=== PATIENT | female | born 1995 | race Caucasian/White ===

== ENCOUNTER 2018-07-06 19:54 | Emergency (ER) | payer OTHER, BC ==
[2018-07-06] MEDS ORDERED: Take Home: Acetaminophen/Codeine 300 MG/30 MG, 5 Tab Pack PO ONE (21:21)
--- NOTE | 2018-07-06 21:32 | EDM.PDOC ---
ED HPI GENERAL MEDICAL PROBLEM - General Chief Complaint: Upper Extremity Injury/Pain Time Seen by Provider: 07/06/18 20:09 Source of Information: Reports: Patient History Limitations: Reports: No Limitations - History of Present Illness INITIAL COMMENTS - FREE TEXT/NARRATIVE: States that she crushed her 5th digit of L hand with a hotplate at work. States that she has decreased ROM to the extremity and throbbing to the distal portion of the digit. Denies any injury elsewhere. Her tetanus is UTD. Onset: Today Onset Date: 07/06/18 Location: Reports: Upper Extremity, Left Quality: Reports: Throbbing Severity: Moderate Left Finger-Little Pain Score (Numeric/FACES): 9 - Related Data Allergies Allergy/AdvReac Type Severity Reaction Status Date / Time No Known Allergies Allergy Verified 07/06/18 20:07 Home Meds: Home Meds Desogestrel-Ethinyl Estradiol [Apri 28 Day Tablet] 1 each PO ASDIRECTED [History] Escitalopram [Lexapro] 20 mg PO DAILY 07/06/18 [History] Levothyroxine [Synthroid] 50 mcg PO ACBREAKFAST 07/06/18 [History] Propranolol [Inderal] 20 mg PO DAILY 07/06/18 [History] Past Medical History Cardiovascular History: Reports: Hypertension Endocrine/Metabolic History: Reports: Hypothyroidism Social & Family History - Tobacco Use Smoking Status *Q: Never Smoker Review of Systems - Review of Systems Review Of Systems: ROS reveals no pertinent complaints other than HPI. ED EXAM, GENERAL - Physical Exam Exam: See Below Exam Limited By: No Limitations General Appearance: Alert, WD/WN, No Apparent Distress Extremities: Limited Range of Motion, Redness, Other (swelling to distal portion of the 5th digit of the L hand) Neurological: Alert, Oriented, CN II-XII Intact, Normal Cognition, Normal Gait, Normal Reflexes, No Motor/Sensory Deficits Skin Exam: Warm, Dry, Intact, Normal Color, No Rash Course - Vital Signs Last Recorded V/S: Last Vital Signs Temp 36.9 C 07/06/18 20:09 Pulse 93 07/06/18 20:09 Resp 16 07/06/18 20:09 BP 150/82 H 07/06/18 20:09 Pulse Ox 99 07/06/18 20:09 - Orders/Labs/Meds Orders: Active Orders 24 hr Category Date Time Status Fingers Fifth Digit Lt F4 [CR] Stat Exams 07/06/18 20:21 Taken Meds: Medications Discontinued Medications Generic Name Dose Route Start Last Admin Trade Name Nahed PRN Reason Stop Dose Admin Acetaminophen/Codeine Phosphate 1 packet 07/06/18 21:21 Take Home: Acetam/Codeine 300-30 Mg, 5 Pack PO 07/06/18 21:22 ONETIME ONE - Radiology Interpretation Free Text/Narrative:: Small avulsion fx. to medial distal phalynx. No involvement of the articulation. Departure - Departure Time of Disposition: 09:30 Disposition: Home, Self-Care 01 Clinical Impression: Fracture, finger, distal phalanx - Discharge Information Instructions: Finger Fracture Referrals: PCP,None [Primary Care Provider] - Forms: ED Department Discharge Additional Instructions: Use finger splint for next several weeks. Tylenol #3 1 every 4-6 hours as needed for pain. Ibuprofen 600mg every 6 hours. Ice the finger for 10-15 min every 1-2 hours. Follow-up in clinic in 7-10 days for recheck/repeat x-rays. There is a good possibility that you will lose the nail, but it should grow back. Allow the nail to fall off on its own. - My Orders Last 24 Hours: My Active Orders 07/06/18 20:21 Fingers Fifth Digit Lt F4 [CR] Stat - Assessment/Plan Last 24 Hours: My Active Orders 07/06/18 20:21 Fingers Fifth Digit Lt F4 [CR] Stat
--- NOTE | 2018-07-07 07:59 | CR ---
[id number] RAD/RAD Fingers Left EXAM: RAD Fingers Left CLINICAL DATA: TRAUMA COMPARISON: NO PREVIOUS SIMILAR EXAM IS AVAILABLE. FINDINGS: No fracture or dislocation is seen. There is no radiopaque foreign body in the soft tissues. There is no air in the soft tissues. There is no cortical thickening or periosteal reaction either. IMPRESSION: NEGATIVE PLAIN FILM EXAM. Bj Arreguin MD 07/07/18 0758 Thank you for allowing us to participate in the care of your patient.
== END 2018-07-06 21:35 | disposition home or self-care (01) ==
LOC: VM.ED 19:54
DX: S62.637A Displaced fracture of distal phalanx of left little finger, initial encounter for closed fracture (principal); I10 Essential (primary) hypertension; E03.9 Hypothyroidism, unspecified; W23.0XXA Caught, crushed, jammed, or pinched between moving objects, initial encounter
CPT/HCPCS: 73140-F4; 99283; A9270-GY